=== PATIENT | female | born 1980 | race Caucasian/White ===

== ENCOUNTER 2020-03-19 08:32 | Outpatient (NON) | payer OTHER, SELFPAY ==
[2020-03-21 18:21] LABS: SARS-CoV-2 RNA PCR Negative
== END 2020-03-19 08:33 ==
PROVIDERS: Visit Provider Nurse Practitioner Family
DX: Z20.828 Contact with and (suspected) exposure to other viral communicable diseases (principal); J32.9 Chronic sinusitis, unspecified
CPT/HCPCS: 87635; C9803; U0003

== ENCOUNTER 2020-06-13 06:50 | Outpatient (NON) | payer OTHER, SELFPAY ==
[2020-06-13 17:33] LABS: SARS-CoV-2 RNA PCR Negative
== END 2020-06-13 06:51 ==
LOC: ANHCOVIDDT 06:58
PROVIDERS: Family Provider Internal Medicine; PCP Nurse Practitioner Family; Visit Provider Family Medicine
DX: Z20.822 Contact with and (suspected) exposure to COVID-19 (principal); R05 Cough
CPT/HCPCS: C9803; U0003; U0005

== ENCOUNTER → 2021-02-08 08:12 | Outpatient (CLI) | payer OTHER, SELFPAY ==
[2021-02-08 18:26] LABS: SARS-CoV-2 RNA PCR Negative
== END ==
PROVIDERS: PCP Nurse Practitioner Family; Visit Provider Nurse Practitioner Family
DX: J01.90 Acute sinusitis, unspecified (principal); J02.9 Acute pharyngitis, unspecified; R52 Pain, unspecified; Z20.822 Contact with and (suspected) exposure to COVID-19
CPT/HCPCS: C9803; U0003; U0005

== ENCOUNTER 2021-06-12 10:46 | Outpatient (CLI) | payer OTHER, SELFPAY ==
--- NOTE | ~2021-06-12 | US_ITS ---
EXAMINATION: US pelvic complete DATE: 06/12/2021 11:11 INDICATION: Pelvic pain. IUD. Comparison:Ultrasound dated 08/24/2018 TECHNIQUE: Multiple transabdominal and endovaginal sonographic images of the pelvis performed. FINDINGS: The uterus measures 8.9 x 3.3 x 5.3 cm. IUD is present in the endometrium. There is a small hypoechoic mass posterior margin of the uterus measuring 1.7 cm, consistent with fibroid. The endome trial complex measures 3 mm. The right ovary measures 2.9 x 2 x 2.2 cm and the left ovary measures 2.6 x 2.7 x 2.1 cm. There are small follicles in each ovary. Normal doppler signal in both ovaries. There is no free fluid in the pelvis. There are no abnormal masses seen on either side. IMPRESSION: 1. IUD in expected position in the endometrium. 2: Small uterine fibroid posteriorly measuring 1.7 cm. Reviewed, dictated and finalized at location B. LEAD
== END 2021-06-12 10:47 ==
LOC: MICIMG 10:47
PROVIDERS: Visit Provider Nurse Practitioner
DX: R10.2 Pelvic and perineal pain (principal); Z97.5 Presence of (intrauterine) contraceptive device; D25.9 Leiomyoma of uterus, unspecified
CPT/HCPCS: 76856

== ENCOUNTER 2023-04-22 07:01 | Outpatient (CLI) | payer OTHER, SELFPAY ==
--- NOTE | ~2023-04-22 | XR_ITS ---
EXAMINATION: XR chest 2V 04/22/2023 07:57 INDICATION: Cough PROCEDURE: 2 view chest COMPARISON: 12/08/2018 FINDINGS: The lungs are clear. The cardiomediastinal silhouette is within normal limits. There are no pleural effusions. There is no pneumothorax suspected. IMPRESSION: 1: NO ACUTE CARDIOPULMONARY DISEASE. Reviewed, dictated and finalized at location B. ER EXAMINER
== END 2023-04-22 07:02 ==
LOC: MICIMG 07:02
PROVIDERS: PCP Family Medicine; Visit Provider Physician Assistant
DX: R05.9 Cough, unspecified (principal)
CPT/HCPCS: 71046

== ENCOUNTER 2024-08-26 09:46 | Outpatient (CLI) | payer OTHER, SELFPAY ==
--- OUTSIDE RECORDS SUMMARY | 2024-08-26 10:18 | XMS_ITS | Continuity of Care Document ---
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 [address] [facility] [address], [place], [place], [id number], [place]. tel:[phone] Family History Family Member Type Diagnosis Age At Onset No Information Payers Payer name Insurance type Covered republican ID Authoriza tion(s) No Information Social History Type Description Quantity Date Captured Comments Sex Female Smoking Status No Information Chief Complaint And Reason For Visit No Information Reason For Referral Reason For Referral No Information History Of Present Illness Encounter Date Complaint History Of Prese nt Illness No Information Functional Status Date Functional Assessmen t No Information Instructions Date Instruction Additional Infor mation No Information Assessments Type Assessment Date No Information Patient Care Teams Name Effective Dates (start - stop) Status Members No Information
[2024-08-26 10:28] LABS: Add Urine Microscopic? YES; Appearance Urine Clear (Clear); Bacteria Urine None Seen /hpf; Bilirubin Urine Negative (Negative); Blood Urine Negative (Negative); Color Urine Yellow (Yellow); Glucose Urine UA Negative (Negative); Ketones Urine Negative (Negative); Leukocyte Esterase Ur Trace LEU/UL (Negative); Nitrate Urine Negative (Negative); Non Pathogenic Casts 0-2; Protein Urine Negative (Negative); RBC Urine 0-2 /hpf (0-2); Specific Grav Ur 1.006 (1.001-1.035); Squamous Epithelial Cell Urine None Seen /hpf (Few); Urobilinogen Urine 0.2 mg/dL (<2.0); WBC Urine 0-5 /hpf (0-3)
== END 2024-08-26 09:47 | disposition home or self-care (01) ==
LOC: ANHLAB 09:48
PROVIDERS: PCP Family Medicine; Visit Provider Physician Assistant Medical
DX: R35.0 Frequency of micturition (principal); R39.15 Urgency of urination
CPT/HCPCS: 81001; 87086

== ENCOUNTER 2025-04-03 15:12 | Emergency (ER) | payer OTHER, SELFPAY ==
[2025-04-03] VITALS (8 sets, daily range): BP systolic 117–149; BP diastolic 75–109; PULSE 72–105; RESP 17–26; TEMP 36.1; O2SAT 97–100
--- NOTE | ~2025-04-03 | CT_ITS ---
EXAMINATION: CT abdomen pelvis w con DATE: 04/03/2025 20:41 INDICATION: Upper abdominal pain for 3 to 4 days. Nausea and vomiting. TECHNIQUE: Computed tomography (CT) of the abdomen and pelvis was performed with 100 cc of IV contrast. Automated exposure control and iterative reconstruction technique were employed. The dose-length product was 737.35 mGy-cm. COMPARISON: Ultrasound pelvis dated 06/12/2021. FINDINGS: Lung bases do not show acute findings. Good sized hiatus hernia in the lower mediastinum. Postoperative changes of gastric surgery is noted. No focal lesions of the liver and spleen. Gallbladder is mildly distended in size with suggestion of small faintly calcified stones. No edema of the gallbladder wall. Common bile duct measures 6 mm in diameter. Pancreas shows no acute findings. Kidneys do not show calculi or obstruction. No evidence of small bowel obstruction. Moderate fecal impaction of the proximal colon. The appendix is not clearly visualized. IUD is noted in the uterus. No pelvic adnexal mass or fluid collections are seen. IMPRESSION: 1. Diffuse fecal impaction of proximal colon. No focal inflammatory changes in the upper abdomen and pelvis. The appendix is not distinctly visible. 2. Postoperative changes of the stomach. Hiatus hernia. 3. Gallbladder is mildly distended in size and contains suggestion of small faintly calcified stones. No CT evidence of acute cholecystitis. Please correlate with clinical and lab results. Correlation with ultrasound of gallbladder is recommended. Reviewed, dictated and finalized at location T. [facility]IC DRUM SANDER IMPRESSION: 1. Diffuse fecal impaction of proximal colon. No focal inflammatory changes in the upper abdomen and pelvis. The appendix is not distinctly visible. 2. Postoperative changes of the stomach. Hiatus hernia. 3. Gallbladder is mildly distended in size and contains suggestion of small liseth ntly calcified stones. No CT evidence of acute cholecystitis. Please correlate with clinical and lab results. Correlation with ultrasound of gallbladder is re commended.
--- NOTE | 2025-04-03 17:35 | ED_ITS ---
HPI - Abdominal Pain General Chief Complaint: Abdominal Pain Stated Complaint: abd pain Time Seen by Provider: 04/03/25 17:38 Focused HPI: Patient is a 44 y/o female, with PMH of gastric sleeve surgery early , who presents to the ED with c/o upper abdominal pain. Patient reports having pain since Thursday night. States pain has been intermittent. She has been dealing with N/V/D since last week as well. States she has lost approx 10 lbs since Thursday. Denies rectal bleeding, melena, hematemesis, fevers. Was initially felt better this morning, but began having pain again after eating tomato soup and grilled cheese for lunch today. Denies hx of gallbladder issues. Reports hx of GERD, but states this feels different. Takes omeprazole at home. GENERAL: Well-appearing, well-nourished, and in no acute distress. HEAD: Normocephalic, atraumatic. CHEST: Clear to auscultation. ?No respiratory distress. HEART: Regular rate and rhythm.? ABD: Mild diffuse tenderness throughout abdomen, more focal TTP in epigastric region. No rebound. Normoactive BS NEURO: ?Alert and oriented x3. Patient screened in triage and initial orders placed.? ?Additional care and disposition to be based upon?diagnostic testing and treatment. Source: patient Mode of arrival: ambulatory Limitations: no limitations Related Data Home Medications ?Medication ?Instructions ?Recorded ?Confirmed ?Last Taken ?Type levonorgestrel (Mirena) 1 device intrauterine ONCE 1 06/02/22 10/05/24 Unknown History multivitamin 1 tablet PO DAILY 04/02/23 0 10/05/24 Unknown History valacyclovir 500 mg tablet 500 mg PO DAILY 04/02/23 Unknown History bupropion HCl 150 mg 24 hr tablet, 150 mg PO DAILY 04/1110/05/24 Unknown History extended release Allergies Allergy/AdvReac Type Severity Reaction Status Date / Time doxycycline Allergy Severe Nausea Verified 12/20/24 16:46 adhesive Allergy Mild rash Verified 12/20/24 16:46 codeine Allergy Mild MAKES SKIN Verified 12/20/24 16:46 FEEL CRAWLY tramadol Allergy Unknown unknown Verified 12/20/24 16:46 sumatriptan (From Imitrex) AdvReac Intermediate Vomiting Verified 12/20/24 16:46 [facility] Past Medical History Medical History Chronic sinusitis Surgical History Surgical History H/O sinus surgery Family History Family History Father Depression Mother Hypertension Diabetes mellitus Sibling Alcoholism and drug addiction in family Depression Social History Social History Social History: Smoking status: Never smoker Second hand tobacco smoke exposure: No Alcohol intake: current Alcohol use details: Rarely Substance use: never Substance use type: does not use Lack of Transportation: No Lack of Food: Never True Current Housing: I Have Housing Concerned About Future Housing: No Difficulty Paying Gas/Electric Bills: No Difficulty Paying for Meds: No Currently Unemployed: No Education: Bachelor's Degree Difficulty w/ Childcare or Family Care: No Living arrangements: with family Occupation/Education: occupation 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 Gender identity (if verbalized by the patient): Female Sexual Orientation (if Verbalized by the Patient): Straight or Heterosexual Course Vital Signs Vital signs: Vital Signs Temperature 97.0 F L 04/03/25 15:25 Pulse Rate 105 H 04/03/25 15:25 Respiratory Rate 18 04/03/25 15:25 Blood Pressure 120/77 04/03/25 15:25 Pulse Oximetry 100 04/03/25 15:25 Oxygen Delivery Room Air 04/03/25 15:25 Temperature 97.0 F L 04/03/25 15:25 Pulse Rate 72 04/03/25 23:06 Respiratory Rate 18 04/03/25 23:06 Blood Pressure 126/76 04/03/25 23:06 Pulse Oximetry 99 04/03/25 23:06 Oxygen Delivery Room Air 04/03/25 15:25 MDM - Abdominal Pain MDM Narrative Medical decision making narrative: MSE by KARTHIK in triage. Lab Data 04/03/25 19:33 04/03/25 19:33 Labs: Lab Results 04/03/25 04/03/25 Range/Units 19:33 19:40 WBC 8.9 (4.5-10.0) K/mm3 RBC 5.00 (4.2-5.4) M/mm3 Hgb 15.4 H (12.0-15.0) g/dL Hct 44.6 (37.0-47.0) % MCV 89.2 (80-100) fl MCH 30.8 (26-34) pg MCHC 34.5 (32-36) g/dl RDW 13.1 (11.5-14.5) % Plt Count 352 (150-375) k/mm3 MPV 10.4 (7.4-10.4) fl Immature Gran % (Auto) 0.2 (0-0.5) % Neut % (Auto) 46.9 (45.5-73.1) % Lymph % (Auto) 42.2 (18.3-44.2) % [place] % (Auto) 9.2 H (2.6-8.5) % Eos % (Auto) 0.8 (0-4.4) % Baso % (Auto) 0.7 (0.2-1.2) % Lymph # (Auto) 3.76 H (0.9-3.2) K/mm3 [place] # (Auto) 0.8 H (0.1-0.6) K/mm3 Eos # (Auto) 0.1 (0-0.3) K/mm3 Baso # (Auto) 0.1 (0.0-0.1) K/mm3 Abs Immat Gran (auto) 0.02 (0.00-0.031) K/mm3 Absolute Neuts (auto) 4.2 (1.3-6.7) K/mm3 Absolute Nucleated RBC 0.000 (0.0-0.012) K/mm3 Nucleated RBC % 0.0 (0.0-0.2) % Sodium 139 (137-145) mmol/L Potassium 3.8 (3.4-5.0) mmol/L Chloride 108 H (98-107) mmol/L Carbon Dioxide 21 L (22-30) mmol/L Anion Gap 10 (4-12) mmol/L BUN 15 (7-17) mg/dL Creatinine 0.84 (0.7-1.0) mg/dL Estim Creat Clear Calc 78 ml/min Estimated GFR > 60 (59 - ) Glucose 86 (65-110) mg/dL Calcium 8.7 (8.4-10.2) mg/dL Total Bilirubin 0.7 (0.2-1.3) mg/dL AST 54 H (14-36) U/L ALT 40 H (6-35) U/L Alkaline Phosphatase 64 (38-126) U/L Troponin I < 0.012 (0.000-0.034) ng/mL Total Protein 7.7 (6.3-8.2) g/dL Albumin 4.5 (3.5-5.1) g/dL Lipase 143 (23-300) U/L Urine Color Dark yellow (Yellow) Urine Appearance Clear (Clear) Urine pH 5.0 (5.0-9.0) Ur Specific [place] 1.023 (1.001-1.035) Urine Protein Negative (Negative) mg/dL Urine Glucose (UA) Negative (Negative) mg/dL Urine Ketones 2+ H (Negative) mg/dL Ur Blood (Man) Negative (Negative) Urine Nitrate Negative (Negative) Urine Bilirubin 1+ H (Negative) Urine Urobilinogen 1.0 (<2.0) mg/dL Leukocyte Esterase Rfl Negative (Negative) SHAYNA/UL Imaging Data Radiologist's impression: ITS Impressions Abdomen/Pelvis CT 04/03/25 20:42 IMPRESSION: 1. Diffuse fecal impaction of proximal colon. No focal inflammatory changes in the upper abdomen and pelvis. The appendix is not distinctly visible. 2. Postoperative changes of the stomach. Hiatus hernia. 3. Gallbladder is mildly distended in size and contains suggestion of small faintly calcified stones. No CT evidence of acute cholecystitis. Please correlate with clinical and lab results. Correlation with ultrasound of gallbladder is recommended. Discharge Plan Discharge Clinical Impression: Constipation, Anxiety Patient Disposition: Home Condition: Stable Instructions: Constipation (ED), Abdominal Pain (ED) Additional Instructions: RETURN IF SYMPTOMS ARE WORSENING , CALL YOUR FAMILY PHYSICIAN FOR APPOINTMENT, TAKE TYLENOL NEEDED FOR ACHES AND PAIN, CONTINUE HOME MEDICATIONS. ENCOURAGE FLUID INTAKE GET OVER THE COUNTER MIRALAX EVERY 4-6 HOURS UP TO 6 TIMES A DAY. Patient Language: Latvian Prescriptions: New dicyclomine 20 mg tablet 20 mg PO QID PRN (Reason: abdominal pain) Qty: 20 0RF No Action multivitamin Tablet 1 tablet PO DAILY valacyclovir 500 mg tablet 500 mg PO DAILY Mirena 21 mcg/24 hours (8 yrs) 52 mg intrauterine device 1 device intrauterine ONCE Rx Instructions: as a single dose bupropion HCl 150 mg tablet extended release 24 hr 150 mg PO DAILY atomoxetine 40 mg capsule 40 mg PO DAILY Qty: 90 0RF trazodone 50 mg tablet 50 mg PO QHS Qty: 90 0RF Nurtec ODT 75 mg tablet,disintegrating 75 mg PO ONCE PRN (Reason: migraine headache) Qty: 8 5RF Rx Instructions: as a single dose gabapentin 100 mg capsule See Rx Instructions .ROUTE .COMPLEX Qty: 90 1RF Dose Instruction: Take 1 capsule by mouth once daily Rx Instructions: Take 1 capsule by mouth once daily topiramate 50 mg tablet See Rx Instructions .ROUTE .COMPLEX Qty: 180 1RF Dose Instruction: Take 1 tablet by mouth twice daily Rx Instructions: Take 1 tablet by mouth twice daily escitalopram oxalate 20 mg tablet See Rx Instructions .ROUTE .COMPLEX Qty: 30 1RF Dose Instruction: TAKE 1 TABLET BY MOUTH ONCE DAILY FOR ANXIETY AND DEPRESSION Rx Instructions: TAKE 1 TABLET BY MOUTH ONCE DAILY FOR ANXIETY AND DEPRESSION buspirone 10 mg tablet See Rx Instructions .ROUTE .COMPLEX Qty: 60 1RF Dose Instruction: Take 1 tablet by mouth twice daily Rx Instructions: Take 1 tablet by mouth twice daily omeprazole 40 mg capsule,delayed release(DR/EC) See Rx Instructions .ROUTE .COMPLEX Qty: 90 1RF Dose Instruction: Take 1 capsule by mouth once daily Rx Instructions: Take 1 capsule by mouth once daily montelukast 10 mg tablet 10 mg PO DAILY Qty: 90 1RF amoxicillin-pot clavulanate [Augmentin] 500-125 mg tablet 1 tablet PO Q12H 5 Days Qty: 10 0RF Follow-up/Referrals: Jayden Steiner MD [Primary Care Provider, Family Practice] Stand Alone Forms: Work/School Release IP
--- NOTE | 2025-04-03 17:41 | ECG_ITS ---
Test Date: 2025-04-03 20:08:48 Measurements Intervals [employer] Rate: 85 P: 60 TN: 140 QRS: 1 QRSD: 82 T: 29 QT: 368 QTc: 440 Interpretive Statements SINUS RHYTHM LOW QRS VOLTAGE IN PRECORDIAL LEADS [QRS DEFLECTION < 1.0 mV IN CHEST LEADS] INFERIOR MYOCARDIAL INFARCTION , PROBABLY OLD [40+ ms Q WAVE AND/OR ST/T ABNORMALITY IN II/aVF] No previous ECG available for comparison Electronically Signed On 04-03-2025 20:50:50 SQUARING MACHINE OPERATOR by Brandy Chaparro M.D.
[2025-04-03] MEDS: PANTOPRAZOLE SODIUM IV 40 MG VIAL IV PUSH (19:37)
[2025-04-03] MEDS: ONDANSETRON INJ 4 MG/2 ML VIAL IV PUSH (19:37)
[2025-04-03 19:39] LABS: Hematocrit 44.6 % (37.0-47.0); Hemoglobin 15.4 g/dL (12.0-15.0); Immature Granulocyte Percent A 0.2 % (0-0.5); Lymphocytes Absolute Auto 3.76 K/mm3 (0.9-3.2); Mean Corpuscular HGB Conc 34.5 g/dl (32-36); Mean Corpuscular Hemoglobin 30.8 pg (26-34); Mean Corpuscular Volume 89.2 fl (80-100); Nucleated Red Blood Cells Absolute Auto 0.000 K/mm3 (0.0-0.012); Nucleated Red Blood Cells Perc 0.0 % (0.0-0.2); Platelet Count Result 352 k/mm3 (150-375); Red Blood Count 5.00 M/mm3 (4.2-5.4); White Blood Count 8.9 K/mm3 (4.5-10.0)
--- NOTE | 2025-04-03 19:43 | ED.ABDPAIN ---
HPI - Abdominal Pain General Chief Complaint: Abdominal Pain Stated Complaint: abd pain Time Seen by Provider: 04/03/25 17:38 Source: patient and family Mode of arrival: ambulatory Limitations: no limitations History of Present Illness HPI narrative: 44 YEARS OLD WHITE FEMALE CAME TO THE ED BY PRIVATE CAR WITH HER FROM HOME COMPLAINING OF INTERMITTENT MID ABDOMINAL PAIN ASSOCIATED WITH INTERMITTENT NAUSEA, VOMITING. HAD LOT OF WATERY STOOL 5 DAYS AGO, RESOLVE IN 24 HOURS LATER HAVE BOWEL MOVEMENT OF HARD STOOL. PATIENT NOTICE THAT HER ABDOMINAL PAIN GET WORSE AFTER EATING OR DRINKING. HISTORY OF GASTRIC SLEEVE. PATIENT REPORT A LOT OF STRESS LATELY SHE DENIES ANY FEVER, CHILLS OR URINARY SYMPTOMS. PATIENT CURRENTLY ON AUGMENTIN FOR URINARY TRACT INFECTION. Related Data Home Medications ?Medication ?Instructions ?Recorded ?Confirmed ?Last Taken ?Type levonorgestrel (Mirena) 1 device intrauterine ONCE 04/02/23 10/05/24 Unknown History multivitamin 1 tablet PO DAILY 04/02/23 10/05/24 Unknown History valacyclovir 500 mg tablet 500 mg PO DAILY 04/02/23 10/05/24 Unknown History bupropion HCl 150 mg 24 hr tablet, 150 mg PO DAILY 08/26/24 10/05/24 Unknown History extended release Allergies Allergy/AdvReac Type Severity Reaction Status Date / Time doxycycline Allergy Severe Nausea Verified 12/20/24 16:46 adhesive Allergy Mild rash Verified 12/20/24 16:46 codeine Allergy Mild MAKES SKIN Verified 12/20/24 16:46 FEEL CRAWLY tramadol Allergy Unknown unknown Verified 12/20/24 16:46 sumatriptan (From Imitrex) AdvReac Intermediate Vomiting Verified 12/20/24 16:46 Review of Systems Review of Systems: All systems reviewed & are unremarkable except as noted in HPI and below PMFSH Past Medical History Medical History Chronic sinusitis Surgical History Surgical History H/O sinus surgery Family History Family History Father Depression Mother Hypertension Diabetes mellitus Sibling Alcoholism and drug addiction in family Depression Social History Social History Social History: Smoking status: Never smoker Second hand tobacco smoke exposure: No Alcohol intake: current Alcohol use details: Rarely Substance use: never Substance use type: does not use Lack of Transportation: No Lack of Food: Never True Current Housing: I Have Housing Concerned About Future Housing: No Difficulty Paying Gas/Electric Bills: No Difficulty Paying for Meds: No Currently Unemployed: No Education: Bachelor's Degree Difficulty w/ Childcare or Family Care: No Living arrangements: with family 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/Education: occupation 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 Gender identity (if verbalized by the patient): Female Sexual Orientation (if Verbalized by the Patient): Straight or Heterosexual Exam Narrative: GENERAL APPEARANCE: WELL-DEVELOPED, WELL-NOURISHED SKIN: NORMAL COLOR HEAD: NORMOCEPHALIC, NONTRAUMATIC EYES: CLEAR CONJUNCTIVA ENT: OROPHARYNX NORMAL, EARS NORMAL, NOSE NORMAL NECK: SUPPLE, NONTENDER CHEST AND RESPIRATORY: AIRWAY PATENT, NO RESPIRATORY DISTRESS, NO ACCESSORY MUSCLE USE HEART: REGULAR RATE/RHYTHM ABDOMEN: SOFT, MODERATE TENDERNESS MID ABDOMEN, NO GUARDING OR REBOUND, NO ORGANOMEGALY, QUIET BOWEL SOUNDS VASCULAR: NORMAL PERIPHERAL PULSES, NORMAL CAPILLARY REFILL. MUSCULOSKELETAL: NORMAL RANGE OF MOTION, NONTENDER BACK NEUROLOGIC: ALERT AND ORIENTED ?3, MANUFACTURER'S REPRESENTATIVE IS NORMAL TESTED, NO GROSS MOTOR DEFICIT Course Vital Signs Vital signs: Vital Signs Temperature 36.1 C L 04/03/25 15:25 Pulse Rate 105 H 04/03/25 15:25 Respiratory Rate 18 04/03/25 15:25 Blood Pressure 120/77 04/03/25 15:25 Pulse Oximetry 100 04/03/25 15:25 Oxygen Delivery Room Air 04/03/25 15:25 Temperature 36.1 C L 04/03/25 15:25 Pulse Rate 78 04/03/25 21:30 Respiratory Rate 26 H 04/03/25 21:30 Blood Pressure 117/75 04/03/25 21:30 Pulse Oximetry 97 04/03/25 21:30 Oxygen Delivery Room Air 04/03/25 15:25 MDM - Abdominal Pain MDM Narrative Medical decision making narrative: PATIENT PRESENTS WITH ABDOMINAL PAIN VITAL SIGNS ARE STABLE PHYSICAL EXAMINATION SHOWING DIFFUSE TENDERNESS MID ABDOMEN OTHERWISE WITHIN NORMAL LIMIT DIFFERENTIAL DIAGNOSIS INCLUDE PANCREATITIS, GASTRITIS, ESOPHAGITIS, CHOLECYSTITIS, COLITIS, DIVERTICULITIS, CONSTIPATION, URINARY TRACT INFECTION, ANXIETY/STRESS RELATED SYMPTOMS BLOOD WORKUP TODAY INCLUDES CBC, CMP, LIPASE SHOWED INSIGNIFICANT ABNORMALITY URINALYSIS SHOWED NO ACUTE ABNORMALITY CT ABDOMEN AND PELVIS WITH IV CONTRAST SHOWED PROXIMAL COLON CONSTIPATION DIAGNOSIS CONSTIPATION, ANXIETY DISCHARGED ON MIRALAX AND BENTYL THE PT WAS DISCHARGED TO HOME.THE PT,S CONDITION UPON DISCHARGE WAS FAIR,EDUCATION WAS PROVIDED TO THE PT IN REFERENCE TO THE FINAL IMPRESSION,DISCHARGE STUDY RESULTS,TREATMENT,PROGNOSIS AND NEED FOR FOLLOW UP . Differential Diagnosis Differential diagnosis: Likely other ( ABOVE) Lab Data Attestation: I reviewed the patient's lab results. 04/03/25 19:33 04/03/25 19:33 Labs: Lab Results 04/03/25 04/03/25 Range/Units 19:33 19:40 WBC 8.9 (4.5-10.0) K/mm3 RBC 5.00 (4.2-5.4) M/mm3 Hgb 15.4 H (12.0-15.0) g/dL Hct 44.6 (37.0-47.0) % MCV 89.2 (80-100) fl MCH 30.8 (26-34) pg MCHC 34.5 (32-36) g/dl RDW 13.1 (11.5-14.5) % Plt Count 352 (150-375) k/mm3 MPV 10.4 (7.4-10.4) fl Immature Gran % (Auto) 0.2 (0-0.5) % Neut % (Auto) 46.9 (45.5-73.1) % Lymph % (Auto) 42.2 (18.3-44.2) % [place] % (Auto) 9.2 H (2.6-8.5) % Eos % (Auto) 0.8 (0-4.4) % Baso % (Auto) 0.7 (0.2-1.2) % Lymph # (Auto) 3.76 H (0.9-3.2) K/mm3 [place] # (Auto) 0.8 H (0.1-0.6) K/mm3 Eos # (Auto) 0.1 (0-0.3) K/mm3 Baso # (Auto) 0.1 (0.0-0.1) K/mm3 Abs Immat Gran (auto) 0.02 (0.00-0.031) K/mm3 Absolute Neuts (auto) 4.2 (1.3-6.7) K/mm3 Absolute Nucleated RBC 0.000 (0.0-0.012) K/mm3 Nucleated RBC % 0.0 (0.0-0.2) % Sodium 139 (137-145) mmol/L Potassium 3.8 (3.4-5.0) mmol/L Chloride 108 H (98-107) mmol/L Carbon Dioxide 21 L (22-30) mmol/L Anion Gap 10 (4-12) mmol/L BUN 15 (7-17) mg/dL Creatinine 0.84 (0.7-1.0) mg/dL Estim Creat Clear Calc 78 ml/min Estimated GFR > 60 (59 - ) Glucose 86 (65-110) mg/dL Calcium 8.7 (8.4-10.2) mg/dL Total Bilirubin 0.7 (0.2-1.3) mg/dL AST 54 H (14-36) U/L ALT 40 H (6-35) U/L Alkaline Phosphatase 64 (38-126) U/L Troponin I < 0.012 (0.000-0.034) ng/mL Total Protein 7.7 (6.3-8.2) g/dL Albumin 4.5 (3.5-5.1) g/dL Lipase 143 (23-300) U/L Urine Color Dark yellow (Yellow) Urine Appearance Clear (Clear) Urine pH 5.0 (5.0-9.0) Ur Specific [place] 1.023 (1.001-1.035) Urine Protein Negative (Negative) mg/dL Urine Glucose (UA) Negative (Negative) mg/dL Urine Ketones 2+ H (Negative) mg/dL Ur Blood (Man) Negative (Negative) Urine Nitrate Negative (Negative) Urine Bilirubin 1+ H (Negative) Urine Urobilinogen 1.0 (<2.0) mg/dL Leukocyte Esterase Rfl Negative (Negative) SHAYNA/UL Imaging Data Radiologist's impression: ITS Impressions Abdomen/Pelvis CT 04/03/25 20:42 IMPRESSION: 1. Diffuse fecal impaction of proximal colon. No focal inflammatory changes in the upper abdomen and pelvis. The appendix is not distinctly visible. 2. Postoperative changes of the stomach. Hiatus hernia. 3. Gallbladder is mildly distended in size and contains suggestion of small faintly calcified stones. No CT evidence of acute cholecystitis. Please correlate with clinical and lab results. Correlation with ultrasound of gallbladder is recommended. Critical Care Time Critical Care Time Critical Care Time: No Discharge Plan Discharge Clinical Impression: Constipation, Anxiety Patient Disposition: Home Condition: Stable Instructions: Constipation (ED), Abdominal Pain (ED) Additional Instructions: RETURN IF SYMPTOMS ARE WORSENING , CALL YOUR FAMILY PHYSICIAN FOR APPOINTMENT, TAKE TYLENOL NEEDED FOR ACHES AND PAIN, CONTINUE HOME MEDICATIONS. ENCOURAGE FLUID INTAKE GET OVER THE COUNTER MIRALAX EVERY 4-6 HOURS UP TO 6 TIMES A DAY. Patient Language: Vietnamese Prescriptions: New dicyclomine 20 mg tablet 20 mg PO QID PRN (Reason: abdominal pain) Qty: 20 0RF No Action multivitamin Tablet 1 tablet PO DAILY valacyclovir 500 mg tablet 500 mg PO DAILY Mirena 21 mcg/24 hours (8 yrs) 52 mg intrauterine device 1 device intrauterine ONCE Rx Instructions: as a single dose bupropion HCl 150 mg tablet extended release 24 hr 150 mg PO DAILY atomoxetine 40 mg capsule 40 mg PO DAILY Qty: 90 0RF trazodone 50 mg tablet 50 mg PO QHS Qty: 90 0RF Nurtec ODT 75 mg tablet,disintegrating 75 mg PO ONCE PRN (Reason: migraine headache) Qty: 8 5RF Rx Instructions: as a single dose gabapentin 100 mg capsule See Rx Instructions .ROUTE .COMPLEX Qty: 90 1RF Dose Instruction: Take 1 capsule by mouth once daily Rx Instructions: Take 1 capsule by mouth once daily topiramate 50 mg tablet See Rx Instructions .ROUTE .COMPLEX Qty: 180 1RF Dose Instruction: Take 1 tablet by mouth twice daily Rx Instructions: Take 1 tablet by mouth twice daily escitalopram oxalate 20 mg tablet See Rx Instructions .ROUTE .COMPLEX Qty: 30 1RF Dose Instruction: TAKE 1 TABLET BY MOUTH ONCE DAILY FOR ANXIETY AND DEPRESSION Rx Instructions: TAKE 1 TABLET BY MOUTH ONCE DAILY FOR ANXIETY AND DEPRESSION buspirone 10 mg tablet See Rx Instructions .ROUTE .COMPLEX Qty: 60 1RF Dose Instruction: Take 1 tablet by mouth twice daily Rx Instructions: Take 1 tablet by mouth twice daily omeprazole 40 mg capsule,delayed release(DR/EC) See Rx Instructions .ROUTE .COMPLEX Qty: 90 1RF Dose Instruction: Take 1 capsule by mouth once daily Rx Instructions: Take 1 capsule by mouth once daily montelukast 10 mg tablet 10 mg PO DAILY Qty: 90 1RF amoxicillin-pot clavulanate [Augmentin] 500-125 mg tablet 1 tablet PO Q12H 5 Days Qty: 10 0RF Follow-up/Referrals: Jayden Steiner MD [Primary Care Provider, Family Practice] Stand Alone Forms: Work/School Release IP
[2025-04-03 20:01] LABS: Alanine Aminotransferase 40 U/L (6-35); Albumin Level 4.5 g/dL (3.5-5.1); Alkaline Phosphatase 64 U/L (38-126); Anion Gap 10 mmol/L (4-12); Aspartate Amino Transferase 54 U/L (14-36); Bilirubin,Total 0.7 mg/dL (0.2-1.3); Blood Urea Nitrogen 15 mg/dL (7-17); Calcium 8.7 mg/dL (8.4-10.2); Carbon Dioxide 21 mmol/L (22-30); Chloride 108 mmol/L (98-107); Estimated CRCL calculation 78 ml/min; Estimated Glomerular Filt Rate > 60; Glucose 86 mg/dL (65-110); Lipase 143 U/L (23-300); Potassium 3.8 mmol/L (3.4-5.0); Sodium 139 mmol/L (137-145); Total Protein 7.7 g/dL (6.3-8.2)
[2025-04-03 20:13] LABS: Troponin I < 0.012 ng/mL (0.000-0.034)
[2025-04-03 20:28] LABS: Add Urine Microscopic? YES; Appearance Urine Clear (Clear); Glucose Urine UA Negative (Negative); Leukocyte Esterase Ur Negative LEU/UL (Negative); Nitrate Urine Negative (Negative); Specific Grav Ur 1.023 (1.001-1.035)
== END 2025-04-03 23:07 | disposition home or self-care (01) ==
PROVIDERS: Physician Assistant; Emergency Provider Emergency Medicine; PCP Family Medicine
DX: K59.00 Constipation, unspecified (principal); F41.9 Anxiety disorder, unspecified; K21.9 Gastro-esophageal reflux disease without esophagitis; J32.9 Chronic sinusitis, unspecified; K44.9 Diaphragmatic hernia without obstruction or gangrene; R93.2 Abnormal findings on diagnostic imaging of liver and biliary tract
CPT/HCPCS: 36415; 74177; 80053; 81001; 83690; 84484; 85025; 93005; 96374; 96375; 99284; J2405; J2470; Q9967